=== PATIENT | female | born 1965 | race African-American/Black ===

== ENCOUNTER 2016-12-15 20:16 | Emergency (ER) | payer MEDICAID ==
[~2016-12-15] VITALS: Ht 167.6 cm; Wt 137.0 kg
[2016-12-15] MEDS ORDERED: ASPIRIN81 MG ORAL (20:36)
[2016-12-15] MEDS ORDERED: SIMVASTATIN5 MG ORAL (20:36)
[2016-12-15] MEDS ORDERED: METFORMIN HCL500 M1 ORAL (20:36)
[2016-12-15 20:44] VITALS: BP 126/62
[2016-12-15] MEDS ORDERED: Methocarbamol 750mg tab ORAL ONE (20:45)
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
[2016-12-15] MEDS ORDERED: ROBAXIN-750750 MG PO (20:50)
[2016-12-15] MEDS ORDERED: IBUPROFEN600 MG ORAL (20:50)
[2016-12-15 21:52] VITALS: BP 122/58
--- NOTE | 2016-12-16 11:32 | Diagnostic Imaging Report ---
Indication: Pain 3 views of the right knee were obtained. Findings: No acute fracture, malalignment, or joint effusion are identified. Joint space is relatively well-maintained. Bone mineralization is within normal limits for age. Impression: Negative exam
== END 2016-12-15 21:52 | disposition home or self-care (01) ==
LOC: EMR 20:42
DX: S16.1XXA Strain of muscle, fascia and tendon at neck level, initial encounter (principal); S80.01XA Contusion of right knee, initial encounter; M54.5 Low back pain; I10 Essential (primary) hypertension; E11.9 Type 2 diabetes mellitus without complications; Z87.09 Personal history of other diseases of the respiratory system; V43.52XA Car driver injured in collision with other type car in traffic accident, initial encounter; Y92.410 Unspecified street and highway as the place of occurrence of the external cause
CPT/HCPCS: 99284

== ENCOUNTER 2020-01-06 11:42 | Emergency (ER) | payer SELFPAY ==
[~2020-01-06] VITALS: Ht 167.6 cm; Wt 131.5 kg
[~2020-01-06 11:42] MED LIST: ASPIRIN81 MG ORAL; IBUPROFEN600 MG ORAL; METFORMIN HCL500 M1 ORAL; ROBAXIN-750750 MG PO; SIMVASTATIN5 MG ORAL
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
[2020-01-06 12:00] VITALS: BP 125/86
[2020-01-06] MEDS ORDERED: Methocarbamol 750mg tab ORAL ONE (12:30)
[2020-01-06] MEDS ORDERED: Ketorolac 30mg Inj IM ONE (12:30)
--- NOTE | 2020-01-06 12:54 | NUR ---
ED Nurse Note: Pt in CT
--- NOTE | 2020-01-06 13:09 | NUR ---
ED Nurse Note: Pt back from radiology
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
[2020-01-06] MEDS ORDERED: LIDODERM700 M1 TOPIC (14:44)
[2020-01-06] MEDS ORDERED: ROBAXIN-500MG ORAL (14:44)
[2020-01-06] MEDS ORDERED: IBUPROFEN600 MG ORAL (14:44)
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
[2020-01-06 15:00] VITALS: BP 129/89
--- NOTE | 2020-01-06 15:00 | NUR ---
ER DISCHARGE NOTE: Patient is cleared to be discharged per ERMD, pt is aox4, on room air, with stable vital signs as documented. pt was given dc and prescription instructions, pt was able to verbalize understanding, pt id band removed. pt is able to ambulate with steady gait. pt took all belongings.
== END 2020-01-06 15:00 | disposition home or self-care (01) ==
LOC: EMR 14:42
DX: S39.012A Strain of muscle, fascia and tendon of lower back, initial encounter (principal); V43.52XA Car driver injured in collision with other type car in traffic accident, initial encounter; Y92.410 Unspecified street and highway as the place of occurrence of the external cause; I10 Essential (primary) hypertension; E11.9 Type 2 diabetes mellitus without complications
CPT/HCPCS: 71250; 72131; 96372; 99284; J1885